=== PATIENT | female | born 1995 | race Caucasian/White ===

== ENCOUNTER → 2024-06-23 13:54 | Outpatient (REF) | payer OTHER, SELFPAY | LOC: HWRAD 13:54 | DX: R10.32 Left lower quadrant pain (principal) | CPT/HCPCS: 76830; 76856 ==

== ENCOUNTER → 2024-09-16 14:30 | Outpatient (REF) | payer OTHER, SELFPAY | LOC: RAD 14:30 | DX: M25.562 Pain in left knee (principal) | CPT/HCPCS: 73564; 73590; 73600; 73630 ==

== ENCOUNTER → 2024-10-31 09:50 | Outpatient (REF) | payer OTHER, SELFPAY | LOC: EMG 09:50 | DX: R29.898 Other symptoms and signs involving the musculoskeletal system (principal) | CPT/HCPCS: 95886; 95908 ==